=== PATIENT | female | born 1955 | race Caucasian/White ===

== ENCOUNTER 2017-05-11 12:49 | Emergency (ER) | payer OTHER ==
[2017-05-11] MEDS ORDERED: Belladonna-Phenobarbital PO STA (13:41)
[2017-05-11] MEDS ORDERED: Lactated Ringer's 1,000 ML IVB ONE (13:42)
[2017-05-11 14:23] LABS: BASO % 0.5 % (0.0-2.0); EOS # 0.1 K/uL (0.0-0.7); EOS % 1.8 % (0.0-4.0); HEMOGLOBIN 14.4 g/dL (11.0-16.0); LYMPH # 1.3 K/uL (1.0-4.3); LYMPH % 27.5 % (20.0-40.0); MEAN CELL VOLUME 81.4 fL (81.0-99.0); MEAN CORPUSCULAR HEMOGLOBIN 26.8 pg (27.0-31.0); MEAN CORPUSCULAR HGB CONC 32.9 g/dL (33.0-37.0); MEAN PLATELET VOLUME 8.5 fL (7.2-11.7); MONO # 0.5 K/uL (0.0-0.8); MONO % 9.8 % (0.0-10.0); NEUT # 2.8 K/uL (1.8-7.0); NEUT % 60.4 % (50.0-75.0); RBC 5.38 Mil/uL (3.80-5.20); RED CELL DISTRIBUTION WIDTH 14.3 % (11.5-14.5); WHITE BLOOD COUNT 4.6 K/uL (4.8-10.8)
[2017-05-11] MEDS ORDERED: Belladonna-Phenobarbital ONE (14:32)
[2017-05-11] MEDS ORDERED: Lactated Ringer's 1,000 ML ONE (14:32)
--- NOTE | 2017-05-11 14:37 | C.PDOC ---
Time Seen by Provider: 05/11/17 13:34 Chief Complaint (Nursing): Abdominal Pain History Per: Patient, Family Onset/Duration Of Symptoms: Days (3) Current Symptoms Are (Timing): Still Present Severity: Moderate Location Of Pain/Discomfort: Diffuse, Epigastric Radiation Of Pain To:: None Quality Of Discomfort: Cramping Associated Symptoms: Fever (subjective), Nausea, Diarrhea Alleviating Factors: None Recent travel outside of the [place]: No Additional History Per: Prior Records Past Medical History Reviewed: Historical Data, Nursing Documentation, Vital Signs Vital Signs: Last Vital Signs Temp 98.8 F 05/11/17 13:02 Pulse 100 H 05/11/17 13:02 Resp 16 05/11/17 13:02 BP 117/82 05/11/17 13:02 Pulse Ox 99 05/11/17 14:37 - Medical History PMH: HTN, Hypothyroidism Surgical History: No Surg Hx Family History: States: Unknown Family Hx - Social History Hx Tobacco Use: No Hx Alcohol Use: No Hx Substance Use: No - Immunization History Hx Tetanus Toxoid Vaccination: No Hx Influenza Vaccination: Yes (06/2016) Hx Pneumococcal Vaccination: No Review Of Systems Except As Marked, All Systems Reviewed And Found Negative. Constitutional: Negative for: Weakness Cardiovascular: Negative for: Chest Pain Respiratory: Negative for: Shortness of Breath Gastrointestinal: Positive for: Nausea, Abdominal Pain, Diarrhea. Negative for : Vomiting Genitourinary: Negative for: Dysuria Musculoskeletal: Negative for: Neck Pain, Back Pain Skin: Negative for: Rash Neurological: Negative for: Weakness, Numbness, Seizures, Altered Mental Status Physical Exam - Physical Exam Appears: Non-toxic, No Acute Distress Skin: Normal Color, Warm, Dry, No Rash Head: Atraumatic, Normacephalic Eye(s): bilateral: Normal Inspection, PERRL, EOMI Neck: Normal ROM, Supple Cardiovascular: Rhythm Regular Respiratory: Normal Breath Sounds, No Accessory Muscle Use Gastrointestinal/Abdominal: Soft, Tenderness (nonspecific), No Guarding, No Rebound Back: No CVA Tenderness Extremity: Normal ROM Neurological/Psych: Oriented x3, Normal Motor, Normal Sensation ED Course And Treatment - Laboratory Results Result Diagrams: 05/11/17 14:19 05/11/17 14:19 O2 Sat by Pulse Oximetry: 99 Pulse Ox Interpretation: Normal Progress Note: Pt feels much better and wants to go home. Reassessment Condition: Improved Progress - Interventions Interventions:: Observation, Intravenous fluid - Medications Administered Intravenous: Antiemetic, H-2 justine - Data Reviewed Data Reviewed: Lab, Old records - Patient Status Patient status: Mostly improved - Continuity of Care Discussed patient case with:: Patient, Family-HIPPA compliant, ED Nurse - Patient Plan Patient Plan: Discharge, F/U with PCP, Continue present meds Disposition Counseled Patient/Family Regarding: Studies Performed, Diagnosis, Need For Followup, Rx Given - Disposition Disposition: HOME/ ROUTINE Disposition Time: 15:28 Condition: IMPROVED Additional Instructions: Drink plenty of fluids. Follow up with your doctor within 2 days. Return to the ER if you develop vomiting, bloody stools, worsening of symptoms or if you have any other concerns. Prescriptions: Bismuth Subsalicylate [Pepto Bismol] 2 tab PO Q1 PRN #16 ctb PRN Reason: Diarrhea Ondansetron [Zofran] 4 mg PO Q8H PRN #15 tab PRN Reason: Nausea/Vomiting Instructions: Acute Diarrhea (ED) Forms: [employer] (Greek) Print Language: GREENLANDIC - Clinical Impression Clinical Impression: Diarrhea, Abdominal pain
[2017-05-11 14:44] LABS: ALBUMIN 3.5 g/dL (3.5-5.0)
[2017-05-11 14:47] LABS: ALB/GLOB RATIO 1.1 (1.0-2.1); ALT/SGPT 35 U/L (9-52); AST/SGOT 28 U/L (14-36); BLOOD UREA NITROGEN 12 mg/dL (7-17); GFR AFRICAN-AMERICAN > 60; GFR NON-AFRICAN AMERICAN > 60; LIPASE 49 U/L (23-300)
[2017-05-11 14:48] LABS: CALCIUM 8.3 mg/dl (8.6-10.4)
[2017-05-11 15:38] VITALS: BP 124/80; PULSE 83; RESP 18; TEMP 97.9; O2SAT 98
== END 2017-05-11 15:55 | disposition home or self-care (01) ==
LOC: C.ER 12:49
DX: R10.13 Epigastric pain (principal); R19.7 Diarrhea, unspecified
CPT/HCPCS: 80053; 83690; 85025; 96374; 96375; 99284; J2405; J7120

== ENCOUNTER 2018-05-16 11:06 | Emergency (ER) | payer OTHER ==
[2018-05-16 11:14] VITALS: BP 101/69; PULSE 91; RESP 18; TEMP 98.2; O2SAT 99; BMI 29.2
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
[2018-05-16] MEDS ORDERED: PROPARACAINE/FLUORESCEIN SOD 100 DROP/5 ML BOTTLE OU STA (12:09)
[2018-05-16] MEDS ORDERED: PROPARACAINE/FLUORESCEIN SOD 100 DROP/5 ML BOTTLE ONE (12:19)
== END 2018-05-16 12:34 | disposition home or self-care (01) ==
LOC: C.ER 11:06
DX: H57.11 Ocular pain, right eye (principal); S05.91XA Unspecified injury of right eye and orbit, initial encounter; W22.8XXA Striking against or struck by other objects, initial encounter; E78.5 Hyperlipidemia, unspecified; I10 Essential (primary) hypertension; E03.9 Hypothyroidism, unspecified